=== PATIENT | female | born 1970 | race Caucasian/White ===

== ENCOUNTER 2016-08-28 12:42 | Day surgery (SDC) | payer BC ==
[~2016-08-28] VITALS: Ht 165.1 cm; Wt 75.7 kg
[2016-08-28 13:13] VITALS: BP 132/88; PULSE 69; TEMP 98.2
[2016-08-28] MEDS ORDERED: LIPITOR 40MG TA40 MG PO (13:17)
[2016-08-28] MEDS ORDERED: LEXAPRO20 MG PO (13:18)
[2016-08-28] MEDS ORDERED: ABILIFY 10MG TA10 MG PO (13:18)
[2016-08-28] MEDS ORDERED: TRICOR145 MG PO (13:18)
[2016-08-28 14:50] VITALS: BP 115/79; PULSE 69; TEMP 98.4
[2016-08-28 15:05] VITALS: BP 111/77; PULSE 68
[2016-08-28 15:20] VITALS: BP 108/70; PULSE 68
== END 2016-08-28 15:30 | disposition home or self-care (01) ==
LOC: SDCO 12:42
DX: Z80.0 Family history of malignant neoplasm of digestive organs (principal)
CPT/HCPCS: OP; J2250; J2405; J3010; J7030

== ENCOUNTER → 2017-04-11 | Outpatient (CLI) | payer BC ==
[~2017-04-11] MED LIST: ABILIFY 10MG TA10 MG PO; LEXAPRO20 MG PO; LIPITOR 40MG TA40 MG PO; TRICOR145 MG PO
== END ==
LOC: MC.RAD 16:11
DX: Z12.31 Encounter for screening mammogram for malignant neoplasm of breast (principal)

== ENCOUNTER → 2018-07-02 | Outpatient (CLI) | payer BC | LOC: MC.RAD 05-26 07:20 | DX: Z12.31 Encounter for screening mammogram for malignant neoplasm of breast (principal); Z98.82 Breast implant status ==

== ENCOUNTER → 2019-08-06 | Outpatient (CLI) | payer BC | LOC: MC.RAD 11:38 | DX: Z12.31 Encounter for screening mammogram for malignant neoplasm of breast (principal) ==

== ENCOUNTER → 2021-07-31 | Outpatient (CLI) | payer BC | LOC: MC.RAD 06-07 13:30 | DX: Z12.31 Encounter for screening mammogram for malignant neoplasm of breast (principal) ==

== ENCOUNTER 2022-05-03 09:27 | Day surgery (SDC) | payer BC ==
[~2022-05-03] VITALS: Ht 165.1 cm; Wt 66.0 kg
[2022-05-03 10:18] VITALS: BP 149/93; PULSE 113; TEMP 98.5
[2022-05-03] MEDS ORDERED: AMITRIPTYLINE H10 M1 PO (10:26)
[2022-05-03] MEDS ORDERED: MULTI VITAMINS1 TAB PO (10:28)
[2022-05-03] MEDS ORDERED: ZYRTEC 10MG10 MG PO (10:28)
[2022-05-03] MEDS ORDERED: NATURAL FISH1200 MG (10:29)
[2022-05-03 11:15] VITALS: BP 112/69; PULSE 102; TEMP 97.3
--- NOTE | 2022-05-03 11:27 | NUR ---
1115 - PT arrives and was assisted with ambulating from cart to chair 1:1 w/ Radha RN. Monitors applied and vitals obtained; PT heart rate tachy, but per report PT has been consistently tachy, which also matches pre-op reading. PT drowsy but oriented; denies pain/nasuea. Verbal room report obtained. Snack and drink provided per PT request; visitor remains present. PT oriented to room and call evangelista, within reach if needed. Will monitor per intervals.
[2022-05-03 11:30] VITALS: BP 106/56; PULSE 74
--- NOTE | 2022-05-03 11:34 | NUR ---
1030 - VSS. Heart rate has come down to 74 bpm. PT expressed desire to be dishcarged. Per PT, has spoken with them. PT has finished snack and drink, continues to deny pain/nausea. Call evangelista remains within reach if needed. Visitor remains present.
[2022-05-03 11:45] VITALS: BP 110/66; PULSE 79
--- NOTE | 2022-05-03 11:53 | NUR ---
1145 - VSS. Monitors and IV discontinued; catheter tip intact and pressure bandage applied. NO redness or swelling noted. DC instructions and educational material reviewed w/ PT who verbalized understanding and signed the related paperwork. Questions answered to PT satifaction. PT refused RN assistance changing into personal clothes; call evangelista remains within reach if needed and non-slip socks are on.
--- NOTE | 2022-05-03 12:00 | NUR ---
1155 - PT dimissed from endo via wheelchair to PT entrence by Venus GONZALEZ. PT has DC packet and personal belongings, and was transferred into the care of her , who is driving private car.
== END 2022-05-03 12:10 | disposition home or self-care (01) ==
LOC: SDCO 09:27
DX: Z12.11 Encounter for screening for malignant neoplasm of colon (principal); D12.5 Benign neoplasm of sigmoid colon; K64.0 First degree hemorrhoids; E78.2 Mixed hyperlipidemia; Z95.1 Presence of aortocoronary bypass graft; Z72.89 Other problems related to lifestyle; F33.41 Major depressive disorder, recurrent, in partial remission; F43.21 Adjustment disorder with depressed mood; F51.04 Psychophysiologic insomnia; Z80.0 Family history of malignant neoplasm of digestive organs
CPT/HCPCS: J2704; J7030

== ENCOUNTER → 2022-09-05 | Outpatient (CLI) | payer BC ==
[~2022-09-05] MED LIST changes: +AMITRIPTYLINE H10 M1 PO; +MULTI VITAMINS1 TAB PO; +NATURAL FISH1200 MG; +ZYRTEC 10MG10 MG PO
== END ==
LOC: MC.RAD 06:52
DX: Z12.31 Encounter for screening mammogram for malignant neoplasm of breast (principal)